=== PATIENT | female | born 1990 | race Caucasian/White ===

== ENCOUNTER 2016-08-06 19:20 | Emergency (ER) | payer OTHER ==
[2016-08-06] MEDS ORDERED: SODIUM CHLORIDE 0.9% 1,000 ML ONE (20:03)
[2016-08-06] MEDS ORDERED: PANTOPRAZOLE SODIUM 40 MG VIAL IV ONE (20:03)
[2016-08-06] MEDS ORDERED: MAALOX/LIDO2%VISC/SIMETHICONE 40 ML BOT ONE (20:03)
[2016-08-06] MEDS ORDERED: ONDANSETRON 4 MG/2ML 2 ML VIAL ONE (20:03)
[2016-08-06] MEDS ORDERED: PANTOPRAZOLE 40 MG TABLET DR PO ONE (20:13)
[2016-08-06] MEDS ORDERED: ONDANSETRON 4 MG ODT TAB ONE (20:13)
[2016-08-06 20:40] LABS: ALB/GLOB RATIO 1.5 (>1.0); ALBUMIN 4.4 gm/dL (3.5-5.7); CALCIUM 9.7 mg/dL (8.6-10.3)
--- NOTE | 2016-08-06 20:43 | US ---
ABDOMINAL-LIMITED COMPARISON: None HISTORY: Right upper quadrant pain with nausea. FINDINGS: Gall bladder: Length 6.1 cm in wall thickness 1.6 mm. No stones or sludge. Negative Ring sign. Common hepatic duct: 1.1 mm Common bile duct: 4.9 mm. IMPRESSION: 1. Normal study. The results were discussed with Kahlil Alicia M.D., 08/06/2016 at 20:38
[2016-08-06 21:08] LABS: SPECIFIC GRAVITY 1.025 (1.001-1.030); URINE BILIRUBIN NEGATIVE (NEGATIVE); URINE BLOOD NEGATIVE (NEGATIVE); URINE GLUCOSE (UA) NEGATIVE (NEGATIVE); URINE LEUKOCYTE ESTERASE NEGATIVE (NEGATIVE); URINE NITRITE NEGATIVE (NEGATIVE); URINE PROTEIN NEGATIVE (NEGATIVE); URINE UROBILINOGEN NORMAL (0-1 mg/dl)
[2016-08-06 21:29] LABS: URINE APPEARANCE SL CLOUDY; URINE COLOR YELLOW
[2016-08-06 21:30] LABS: HCG,QUALITATIVE URINE NEGATIVE
[2016-08-06 21:37] LABS: URINE AMORPHOUS SEDIMENT FEW; URINE BACTERIA RARE; URINE MUCUS 1+; URINE RBC 0 /hpf; URINE WBC 0-2 /hpf
[2016-08-06 21:38] LABS: URINE CRYSTALS FEW /hpf
== END 2016-08-06 21:21 | disposition home or self-care (01) ==
LOC: ED 19:20
DX: K29.70 Gastritis, unspecified, without bleeding (principal)